=== PATIENT | female | born 1990 | race Caucasian/White ===

== ENCOUNTER 2017-04-13 22:38 | Emergency (ER) | payer OTHER ==
[2017-04-14 00:35] VITALS: BP 146/76
== END 2017-04-14 00:35 | disposition home or self-care (01) ==
LOC: ED 22:38
DX: L03.115 Cellulitis of right lower limb (principal)
CPT/HCPCS: 90715

== ENCOUNTER 2017-10-30 08:44 | Emergency (ER) | payer OTHER ==
[~2017-10-30] VITALS: Ht 154.9 cm; Wt 55.8 kg
[2017-10-30 09:00] VITALS: BP 123/80; Ht 154.9 cm; Wt 55.8 kg
== END 2017-10-30 11:57 | disposition home or self-care (01) ==
LOC: ED 08:44
DX: S69.82XA Other specified injuries of left wrist, hand and finger(s), initial encounter (principal); W01.0XXA Fall on same level from slipping, tripping and stumbling without subsequent striking against object, initial encounter; Y93.89 Activity, other specified; Y99.8 Other external cause status; Y92.89 Other specified places as the place of occurrence of the external cause
CPT/HCPCS: A4570

== ENCOUNTER 2017-11-05 12:28 | Emergency (ER) | payer OTHER ==
[~2017-11-05] VITALS: Ht 154.9 cm; Wt 57.1 kg
[2017-11-05 13:01] VITALS: Ht 154.9 cm; Wt 57.1 kg
[2017-11-05 14:46] VITALS: BP 120/76
== END 2017-11-05 14:46 | disposition home or self-care (01) ==
LOC: ED 12:28
DX: S63.613D Unspecified sprain of left middle finger, subsequent encounter (principal); S63.615D Unspecified sprain of left ring finger, subsequent encounter; X58.XXXD Exposure to other specified factors, subsequent encounter

== ENCOUNTER 2018-04-08 17:15 | Emergency (ER) | payer OTHER ==
[~2018-04-08] VITALS: Ht 157.5 cm; Wt 62.8 kg
[2018-04-08 17:31] VITALS: Ht 157.5 cm; Wt 62.8 kg
[2018-04-08 18:34] VITALS: BP 127/84
== END 2018-04-08 18:34 | disposition home or self-care (01) ==
LOC: ED 17:15
DX: M54.9 Dorsalgia, unspecified (principal)
CPT/HCPCS: J1885

== ENCOUNTER 2019-08-03 15:01 | Emergency (ER) | payer SELFPAY ==
[~2019-08-03] VITALS: Ht 157.5 cm; Wt 64.0 kg
[2019-08-03 15:08] VITALS: Ht 157.5 cm; Wt 64.0 kg
[2019-08-03 16:44] VITALS: BP 126/80
== END 2019-08-03 16:44 | disposition home or self-care (01) ==
LOC: ED 15:01
DX: S93.401A Sprain of unspecified ligament of right ankle, initial encounter (principal); M79.671 Pain in right foot; X50.1XXA Overexertion from prolonged static or awkward postures, initial encounter; Y93.02 Activity, running; Y92.89 Other specified places as the place of occurrence of the external cause; Y99.8 Other external cause status

== ENCOUNTER 2020-11-25 23:33 | Emergency (ER) | payer OTHER ==
[~2020-11-25] VITALS: Ht 157.5 cm; Wt 61.2 kg
[2020-11-25 23:42] VITALS: Ht 157.5 cm; Wt 61.2 kg
[2020-11-26 01:24] LABS: BASOPHIL % 0.4 % (0.2-1.3); PLATELET COUNT 289 x10^3mcL (179-408); RED CELL DISTRIBUTION WIDTH 12.4 % (12.3-17.7)
[2020-11-26 02:00] LABS: CALCIUM 9.3 mg/dL (8.5-10.1); CHLORIDE SERUM 103 mmol/L (98-107); CREATININE SERUM 0.8 mg/dL (0.6-1.0); GFR1 > 60 mL/min; GLUCOSE SERUM 101 mg/dL (74-106); POTASSIUM SERUM 3.4 mmol/L (3.5-5.1); SODIUM SERUM 137 mmol/L (136-145)
[2020-11-26 02:05] LABS: ALBUMIN 3.9 g/dL (3.4-5.0); ALKALINE PHOSPHATASE 92 U/L (46-116); ALT/SGPT 18 U/L (14-59); AST/SGOT 14 U/L (15-37); BILIRUBIN TOTAL 0.85 mg/dL (0.20-1.00); TOTAL PROTEIN, SERUM 7.2 g/dL (6.4-8.2)
[2020-11-26] MEDS ORDERED: CEPHALEXIN500 MG PO (03:59)
[2020-11-26] MEDS ORDERED: MOT600 PO (04:01)
[2020-11-26 04:20] VITALS: BP 116/69
== END 2020-11-26 04:20 | disposition home or self-care (01) ==
LOC: ED 23:33
PROVIDERS: Emergency Medicine
DX: N39.0 Urinary tract infection, site not specified (principal)
CPT/HCPCS: J1885; Q9967